=== PATIENT | female | born 1990 | race Caucasian/White ===

== ENCOUNTER 2018-01-25 15:30 | Outpatient (CLI) | payer OTHER ==
[2018-01-25 16:54] LABS: #Basophils 0.1 thou/uL (0.0-0.2); #Eosinphils 0.2 thou/uL (0.0-0.7); #Lymphocytes 2.9 thou/uL (1.20-3.40); #Monocytes 0.5 thou/uL (0.11-0.59); #Neutrophils 2.8 thou/uL (1.40-6.50); %Basophils 1.3 % (0.0-1.0); %Eosinophils 3.2 % (0.0-10.0); %Lymphocytes 44.2 % (21.0-51.0); %Monocytes 8.4 % (0.0-10.0); %Neutrophils 42.9 % (42.0-75.0); Hemoglobin 12.4 g/dL (12.0-16.0); Mean Corpuscular HGB CONC 33.1 g/dL (32.0-36.0); Mean Corpuscular Volume 93.4 fl (81.0-99.0); Mean Platelet Volume 8.8 fL (7.4-10.4); Platelet Count 217 thou/uL (130-400); RBC Distribution Width 11.8 % (11.5-14.5); White Blood Cell (WBC) Count 6.5 thou/uL (4.8-10.8)
[2018-01-25 16:58] LABS: BHCG - Serum Negative (NEGATIVE); Pregs Control Background? CLEAR/WHITE (CLR/WHITE); Pregs Control Bar Appear? YES (CONTROL BAR)
[2018-01-25 17:23] LABS: ALT (SGPT) 12 U/L (8-55); AST (SGOT) 14 U/L (5-34); Albumin 4.4 g/dL (3.5-5.0); Alkaline Phosphatase 58 U/L (40-150); Anion Gap 9 mmol/L (10-20); BUN (Urea Nitrogen) 13 mg/dL (7.0-18.7); Bilirubin, Total 0.3 mg/dL (0.2-1.2); Calc. Creatinine Clearance 0 mL/min (70-130); Calcium 9.1 mg/dL (7.8-10.44); Carbon Dioxide 26 mmol/L (22-29); Chloride 107 mmol/L (98-107); Estimated GFR-MDRD 85; Globulin 2.1 g/dL (2.4-3.5); Glucose 87 mg/dL (70-105); Potassium 4.1 mmol/L (3.5-5.1); Protein, Total 6.5 g/dL (6.0-8.3); Sodium 138 mmol/L (136-145)
== END 2018-01-25 15:31 | disposition home or self-care (01) ==
LOC: LABBT 15:30
PROVIDERS: ATTEND Surgery
DX: Z01.812 Encounter for preprocedural laboratory examination (principal); K43.2 Incisional hernia without obstruction or gangrene
CPT/HCPCS: 80053; 84703; 85025

== ENCOUNTER 2018-02-01 06:11 | Inpatient (IN) | payer OTHER ==
[2018-01-25 16:12] VITALS: BMI 33.5
[2018-02-01] MEDS ORDERED: Bupivacaine/Epinephrine 0.25% 30 ML VIAL ONE (06:37)
[2018-02-01] MEDS ORDERED: Fentanyl 100 MCG/2 ML VIAL ONE ×3 (06:38→09:53)
[2018-02-01] MEDS ORDERED: Midazolam HCl 2 mg/2 ml Vial ONE (06:38)
[2018-02-01] MEDS ORDERED: CEFAZOLIN/Water 2 GM/20 ML SYRINGE ONE (07:19)
[2018-02-01] MEDS ORDERED: Albuterol Sulfate HFA (OR ONLY) ONE (07:40)
[2018-02-01] MEDS ORDERED: Promethazine HCl 25 MG/ML VIAL IM PRN (09:04)
[2018-02-01] MEDS ORDERED: hydrALAZINE 20 MG/ML VIAL SLOW IVP PRN (09:04)
[2018-02-01] MEDS ORDERED: Dextrose 5% in Water 1,000 ML IV PRN (09:04)
[2018-02-01] MEDS ORDERED: Ondansetron HCl/PF 4 MG/2 ML Vial IVP PRN (09:04)
[2018-02-01] MEDS ORDERED: Morphine 4 MG/ML VIAL SLOW IVP PRN ×2 (09:04)
[2018-02-01] MEDS ORDERED: Dextrose 50% Abboject 50 ML SYRINGE SLOW IVP PRN (09:04)
--- NOTE | 2018-02-01 09:44 | OP ---
PREOPERATIVE DIAGNOSIS: Incisional ventral hernia x2. SURGEON: Masoud Caraballo M.D. PROCEDURE PERFORMED: Laparoscopic ventral hernia repair with mesh x2. INDICATIONS: This is a 27-year-old female who had a previous section through a low midline and developed 2 incisional hernias causing pain. FINDINGS: A 4 cm hernias x2, one at the umbilicus and one just below between the umbilicus and pubis . PROCEDURE IN DETAIL: After informed consent was obtained, patient was taken to the operating room an d given general endotracheal anesthesia. She was placed with the left side propped up, right side sl ightly down. Abdomen and pelvis prepped and draped in usual fashion. Local anesthesia infiltrated s ubcutaneously and deep. A 12 mm incision was performed in left flank. Veress needle inserted. Drop test performed. Pneumoperitoneum was created to a volume of 2 liters of carbon dioxide. Utilizing a bladeless 12 lumen trocar and 0 degree laparoscope, direct visual entry in the abdominal cavity was performed. Pneumoperitoneum was created to a pressure of 15 mmHg. Zero degree laparoscope inserted under direct vision, two 5-mm ports were placed on the far left side. Then a laparoscopic lysis of adhesions was performed utilizing the LigaSure. The anterior abdominal wall was completely cleaned o f adhesions and the falciform ligament was partially from the anterior abdominal wall to al low more space. A 15 x 22 cm Proceed mesh was used. This was prepared by placing alternating colore d 0 Ethibond circumferentially, total of 8. Then it was hydrated, rolled, and introduced into the ab domen. It was unrolled and the sutures were individually grasped to position the mesh optimally. Th ruma were then tied down and then the SecureStrap Tacker was used to further secure the mesh to the an terior abdominal wall. Hemostasis was assured. The sutures were cut and the incisions closed with i nterrupted 4-0 Rapide. Dermabond applied. An abdominal binder applied. Patient tolerated the proce dure well and was transferred to recovery in good condition. Sponge and needle count verified correc t x2.
[2018-02-01] MEDS: Piperacillin/Tazobactam 3.375 GM in Sodium Chloride 0.9% 100 ML IVPB SCH ×2 (11:59→17:39)
[2018-02-01] MEDS ORDERED: Ketorolac Tromethamine 30 MG/ML VIAL IVP SCH (12:00)
[2018-02-01] MEDS ORDERED: PROVENTIL INHALER 6.7 G (200 INHALATIONS) ONE (13:59)
[2018-02-01] MEDS ORDERED: Dexamethasone 20 MG/5 ML VIAL ONE (13:59)
[2018-02-01] MEDS ORDERED: PROPOFOL 200 MG/20 ML VIAL ONE (13:59)
[2018-02-01] MEDS ORDERED: Lidocaine 1% PF 5 ML VIAL ONE (13:59)
[2018-02-01] MEDS ORDERED: Glycopyrrolate 0.2 MG/ML 5 ML SYRINGE ONE (13:59)
[2018-02-01] MEDS ORDERED: PHENYLEPHRINE-NS 100 MCG/ML 10 ML SYRINGE ONE (13:59)
[2018-02-01] MEDS ORDERED: Ketorolac Tromethamine 30 MG/ML VIAL ONE (13:59)
[2018-02-01] MEDS: Ketorolac Tromethamine 30 MG/ML VIAL IVP SCH ×2 (15:36→23:29)
[2018-02-01] MEDS: Lactated Ringer's 1,000 ML IV SCH ×2 (16:14→19:45)
[2018-02-01] MEDS: HYDROcodone/Acetaminophen 10/325 mg Tablet PO PRN (17:39)
[2018-02-01] MEDS: Famotidine/PF 20 mg/2ml Vial SLOW IVP SCH (20:55)
[2018-02-01] MEDS ORDERED: traZODone HCl 150 MG TAB PO SCH (21:00)
[2018-02-01] MEDS ORDERED: Amoxicillin/Potassium Clav 875 MG TAB PO SCH (21:00)
[2018-02-01] MEDS ORDERED: LATUDA 120 MG PO SCH (21:00)
[2018-02-01] MEDS: OXcarbazepine 300 MG TAB PO SCH (22:51)
[2018-02-01] MEDS: Famotidine 20 MG TAB PO SCH (22:51)
[2018-02-01] MEDS: clonazePAM 1 MG TAB PO SCH (23:29)
[2018-02-02] MEDS: HYDROcodone/Acetaminophen 10/325 mg Tablet PO PRN ×4 (00:27→14:28)
[2018-02-02] MEDS: Piperacillin/Tazobactam 3.375 GM in Sodium Chloride 0.9% 100 ML IVPB SCH ×3 (00:27→13:35)
[2018-02-02] MEDS: Ketorolac Tromethamine 30 MG/ML VIAL IVP SCH ×2 (04:20→08:26)
[2018-02-02] MEDS: Lactated Ringer's 1,000 ML IV SCH (04:41)
[2018-02-02 05:41] LABS: #Eosinphils 0.1 thou/uL (0.0-0.7); #Lymphocytes 2.3 thou/uL (1.20-3.40); #Monocytes 0.5 thou/uL (0.11-0.59); #Neutrophils 4.4 thou/uL (1.40-6.50); %Basophils 0.2 % (0.0-1.0); %Eosinophils 1.9 % (0.0-10.0); %Lymphocytes 31.3 % (21.0-51.0); %Monocytes 7.3 % (0.0-10.0); %Neutrophils 59.4 % (42.0-75.0); Hemoglobin 10.9 g/dL (12.0-16.0); Mean Corpuscular HGB CONC 33.7 g/dL (32.0-36.0); Mean Corpuscular Hemoglobin 30.8 pg (27.0-31.0); Mean Corpuscular Volume 91.5 fl (81.0-99.0); Mean Platelet Volume 8.7 fL (7.4-10.4); Platelet Count 169 thou/uL (130-400); RBC Distribution Width 11.8 % (11.5-14.5); Red Blood Cell (RBC) Count 3.54 mill/uL (4.20-5.40); White Blood Cell (WBC) Count 7.5 thou/uL (4.8-10.8)
[2018-02-02 05:45] LABS: Anion Gap 5 mmol/L (10-20); BUN (Urea Nitrogen) 6 mg/dL (7.0-18.7); Calc. Creatinine Clearance 210 mL/min (70-130); Calcium 8.1 mg/dL (7.8-10.44); Carbon Dioxide 28 mmol/L (22-29); Chloride 103 mmol/L (98-107); Estimated GFR-MDRD Greater than 90; Glucose 100 mg/dL (70-105); Potassium 3.4 mmol/L (3.5-5.1); Sodium 133 mmol/L (136-145)
[2018-02-02] MEDS ORDERED: Enoxaparin Sodium 40 MG/0.4 ML SYRINGE SC SCH (06:00)
[2018-02-02] MEDS: OXcarbazepine 300 MG TAB PO SCH (08:27)
[2018-02-02] MEDS: clonazePAM 1 MG TAB PO SCH (08:27)
[2018-02-02] MEDS: Famotidine 20 MG TAB PO SCH (08:27)
[2018-02-02] MEDS ORDERED: Bupropion 150 MG SR TAB PO SCH (09:00)
[2018-02-02 09:11] VITALS: TEMP 97.6
[2018-02-02 09:13] VITALS: BP 122/73
--- NOTE | 2018-02-02 09:55 | DIS ---
DISCHARGE DIAGNOSIS: Incisional ventral hernia x2. PROCEDURES DURING ADMISSION: Laparoscopic ventral hernia repair with mesh. HOSPITAL COURSE: The patient was admitted, taken to the OR where she underwent a laparoscopic ventra l hernia repair x2 with mesh. Postoperatively, she has done well. Her pain is controlled on p.o. me ds. She is discharged home in good condition on hydrocodone and Zofran. She will follow up with me in 2 weeks.
[2018-02-02] MEDS: Famotidine/PF 20 mg/2ml Vial SLOW IVP SCH (11:46)
[2018-02-03] MEDS ORDERED: Enoxaparin Sodium 40 MG/0.4 ML SYRINGE SC SCH (09:00)
== END 2018-02-02 15:12 | disposition home or self-care (01) | DRG 355 ==
LOC: SDC 06:11 → SJJU 10:05
PROVIDERS: ADMIT Surgery; ATTEND Surgery
PROC: 0WUF4JZ Supplement Abdominal Wall with Synthetic Substitute, Percutaneous Endoscopic Approach (ICD-10-PCS; principal; 2018-02-01)
DX: K43.2 Incisional hernia without obstruction or gangrene (principal); F20.9 Schizophrenia, unspecified; F31.9 Bipolar disorder, unspecified; F17.210 Nicotine dependence, cigarettes, uncomplicated
CPT/HCPCS: 36415; 80048; 85025; 96374; C1781; J0131; J1100; J1650; J1885; J2001; J2250; J2270; J2543; J2704; J3010; J7050

== ENCOUNTER 2022-01-27 17:00 | Outpatient (CLI) | payer OTHER | END 2022-01-27 17:01 | disposition home or self-care (01) | LOC: SLEEPLAB 17:00 | PROVIDERS: ATTEND Student in an Organized Health Care Education/Training Program | DX: G47.33 Obstructive sleep apnea (adult) (pediatric) (principal); R51.9 Headache, unspecified; R06.83 Snoring; F41.9 Anxiety disorder, unspecified; G47.00 Insomnia, unspecified; F31.9 Bipolar disorder, unspecified; G47.31 Primary central sleep apnea; E66.9 Obesity, unspecified; Z68.43 Body mass index [BMI] 50.0-59.9, adult | CPT/HCPCS: 95800 ==

== ENCOUNTER 2022-02-12 15:35 | Outpatient (CLI) | payer OTHER | END 2022-02-12 15:36 | disposition home or self-care (01) | LOC: DTY/OP 15:35 | PROVIDERS: ATTEND Specialist | DX: E66.01 Morbid (severe) obesity due to excess calories (principal) | CPT/HCPCS: 97802 ==

== ENCOUNTER 2022-03-07 12:24 | Outpatient (CLI) | payer OTHER | END 2022-03-07 12:25 | disposition home or self-care (01) | LOC: ULT 12:24 | PROVIDERS: ATTEND Student in an Organized Health Care Education/Training Program | DX: R60.0 Localized edema (principal); R06.01 Orthopnea; I07.1 Rheumatic tricuspid insufficiency | CPT/HCPCS: 93306 ==

== ENCOUNTER 2022-04-02 19:30 | Outpatient (CLI) | payer OTHER | END 2022-04-02 19:31 | disposition home or self-care (01) | LOC: SLEEPLAB 19:30 | PROVIDERS: ATTEND Student in an Organized Health Care Education/Training Program | DX: G47.33 Obstructive sleep apnea (adult) (pediatric) (principal); R51.9 Headache, unspecified; E66.9 Obesity, unspecified; F41.9 Anxiety disorder, unspecified; G47.10 Hypersomnia, unspecified; Z68.43 Body mass index [BMI] 50.0-59.9, adult | CPT/HCPCS: 95811 ==

== ENCOUNTER 2022-10-23 10:45 | Inpatient (IN) | payer OTHER ==
[2022-10-28 15:07] VITALS: BMI 50.1
[2022-10-29] MEDS ORDERED: Acetaminophen 500 MG TAB ONE (06:30)
[2022-10-29] MEDS ORDERED: Heparin 5,000 UNITS/ML VIAL ONE (06:30)
[2022-10-29] MEDS ORDERED: Ketorolac Tromethamine 30 MG/ML VIAL ONE ×2 (06:30→07:38)
[2022-10-29] MEDS ORDERED: Fentanyl 250 MCG/5 ML VIAL ONE (06:42)
[2022-10-29] MEDS ORDERED: Dexmedetomidine 200 MCG/2 ML VIAL ONE (06:43)
[2022-10-29] MEDS ORDERED: Bupivacaine/Epinephrine 0.25% 30 ML VIAL ONE (06:54)
[2022-10-29 07:04] LABS: SARS-CoV-2 NAA Rapid Test Not Detected (NotDetected)
[2022-10-29] MEDS ORDERED: cefOXitin 2 GM VIAL ONE (07:19)
[2022-10-29] MEDS ORDERED: Sodium Chloride 0.9% 100 ML ONE (07:22)
[2022-10-29] MEDS ORDERED: Ondansetron PF 4 MG/2 ML Vial ONE (07:38)
[2022-10-29] MEDS ORDERED: Glycopyrrolate 0.2 MG/ML 5 ML SYRINGE ONE (07:38)
[2022-10-29] MEDS ORDERED: NEOSTIGMINE 3 MG/3 ML SYR 3 MG/3 ML SYRINGE ONE (07:38)
[2022-10-29] MEDS ORDERED: Rocuronium Bromide 10 MG/ML (10ML VIAL) ONE (07:38)
[2022-10-29] MEDS ORDERED: PROPOFOL 200 MG/20 ML VIAL ONE (07:38)
[2022-10-29] MEDS ORDERED: Dexamethasone 20 MG/5 ML VIAL ONE (07:38)
[2022-10-29] MEDS ORDERED: HumaLOG 300 UNITS/3 ML VIAL SC PRN (07:45)
[2022-10-29] MEDS ORDERED: Dextrose 50% Abboject 50 ML SYRINGE SLOW IVP PRN (07:45)
[2022-10-29] MEDS ORDERED: Morphine 4 MG/ML VIAL SLOW IVP PRN (07:45)
[2022-10-29] MEDS ORDERED: Acetaminophen 650 MG/20.3 ML UDCUP PO PRN (07:45)
[2022-10-29] MEDS ORDERED: Promethazine HCl 25 MG/ML VIAL IM PRN ×2 (07:45→10:46)
[2022-10-29] MEDS ORDERED: Ondansetron PF 4 MG/2 ML Vial IVP PRN (07:45)
[2022-10-29] MEDS ORDERED: hydrALAZINE 20 MG/ML VIAL SLOW IVP PRN (07:45)
[2022-10-29] MEDS ORDERED: Ipratropium/Albuterol 3 ML NEB NEB PRN (07:45)
[2022-10-29] MEDS ORDERED: Dextrose 5% in Water 1,000 ML IV PRN (07:45)
[2022-10-29] MEDS ORDERED: diphenhydrAMINE 50 MG/ML VIAL IVP PRN (07:45)
[2022-10-29] MEDS ORDERED: Ondansetron HCl/PF 4 MG/2 ML Vial IVP PRN (10:46)
[2022-10-29] MEDS ORDERED: Fentanyl 100 MCG/2 ML VIAL ONE ×3 (11:32→15:41)
[2022-10-29] MEDS: 1/2 NS w/KCL 20 mEq 1,000 ML IV SCH ×2 (16:42→17:11)
[2022-10-29] MEDS: Pantoprazole 40 MG VIAL IVP SCH (16:43)
[2022-10-29] MEDS: Ketorolac Tromethamine 30 MG/ML VIAL IVP SCH ×2 (16:43→17:12)
[2022-10-29] MEDS: CEFAZOLIN 2 GM in Sodium Chloride 0.9% 100 ML IVPB SCH (17:12)
[2022-10-29] MEDS: Hydrocodone-Acetamin 15 ML UDCUP PO PRN (21:30)
[2022-10-30] MEDS: Ketorolac Tromethamine 30 MG/ML VIAL IVP SCH ×4 (00:24→17:30)
[2022-10-30] MEDS: CEFAZOLIN 2 GM in Sodium Chloride 0.9% 100 ML IVPB SCH (00:28)
[2022-10-30] MEDS: 1/2 NS w/KCL 20 mEq 1,000 ML IV SCH ×3 (00:34→16:18)
[2022-10-30 06:13] LABS: #Lymphocytes 1.9 thou/uL (1.20-3.40); #Monocytes 0.8 thou/uL (0.11-0.59); #Neutrophils 7.7 thou/uL (1.40-6.50); %Basophils 0.2 % (0.0-1.0); %Eosinophils 0.2 % (0.0-10.0); %Lymphocytes 18.5 % (21.0-51.0); %Monocytes 7.2 % (0.0-10.0); %Neutrophils 73.9 % (42.0-75.0); Hemoglobin 11.4 g/dL (12.0-16.0); Mean Corpuscular Hemoglobin 31.1 pg (27.0-31.0); Mean Corpuscular Volume 94.2 fl (78.0-98.0); Mean Platelet Volume 9.1 fL (7.4-10.4); Platelet Count 226 10x3/uL (130-400); RBC Distribution Width 12.1 % (11.5-14.5); Red Blood Cell (RBC) Count 3.66 mill/uL (4.20-5.40); White Blood Cell (WBC) Count 10.4 10x3/uL (4.8-10.8)
[2022-10-30 06:29] LABS: Anion Gap 11 mmol/L (10-20); BUN (Urea Nitrogen) 8 mg/dL (7.0-18.7); Calc. Creatinine Clearance 239 mL/min (70-130); Calcium 8.4 mg/dL (7.8-10.44); Carbon Dioxide 24 mmol/L (22-29); Chloride 107 mmol/L (98-107); Estimated GFR 101; Glucose 95 mg/dL (70-105); Potassium 4.1 mmol/L (3.5-5.1); Sodium 138 mmol/L (136-145)
[2022-10-30] MEDS: Pantoprazole 40 MG VIAL IVP SCH (08:39)
[2022-10-30] MEDS: Hydrocodone-Acetamin 15 ML UDCUP PO PRN (08:39)
[2022-10-30 08:45] VITALS: TEMP 98
[2022-10-30 12:08] VITALS: BP 91/57
[2022-10-31] MEDS ORDERED: FLU VACC QS2022-23(6MOS UP)/PF 60 MCG/0.5 ML SYRINGE IM ONE (09:00)
== END 2022-10-30 18:14 | disposition home or self-care (01) | DRG 621 ==
LOC: SURG A 10-29 06:04 → SJJU 10-29 17:08
PROVIDERS: ADMIT Specialist; ATTEND Specialist
PROC: 0D164ZA Bypass Stomach to Jejunum, Percutaneous Endoscopic Approach (ICD-10-PCS; principal; 2022-10-29)
PROC: 3E033XZ Introduction of Vasopressor into Peripheral Vein, Percutaneous Approach (ICD-10-PCS; 2022-10-29)
DX: E66.01 Morbid (severe) obesity due to excess calories (principal); E11.9 Type 2 diabetes mellitus without complications; G47.30 Sleep apnea, unspecified; K66.0 Peritoneal adhesions (postprocedural) (postinfection); M51.16 Intervertebral disc disorders with radiculopathy, lumbar region; K21.9 Gastro-esophageal reflux disease without esophagitis; K43.2 Incisional hernia without obstruction or gangrene; Z98.890 Other specified postprocedural states; Z79.890 Hormone replacement therapy; Z79.899 Other long term (current) drug therapy; Z68.43 Body mass index [BMI] 50.0-59.9, adult; D64.9 Anemia, unspecified; Z20.822 Contact with and (suspected) exposure to COVID-19; J45.909 Unspecified asthma, uncomplicated; F17.210 Nicotine dependence, cigarettes, uncomplicated; Z82.49 Family history of ischemic heart disease and other diseases of the circulatory system; Z80.51 Family history of malignant neoplasm of kidney; Z88.8 Allergy status to other drugs, medicaments and biological substances
CPT/HCPCS: 36415; 36416; 80048; 85025; A4649; C1889; C9113; J0694; J1100; J1644; J1650; J1885; J2405; J2704; J3010; J3480; J3490; U0002

== ENCOUNTER 2022-10-23 11:37 | Outpatient (CLI) | payer OTHER ==
[2022-10-23 14:57] LABS: BHCG - Serum Negative (NEGATIVE); Pregs Control Background? CLEAR/WHITE (CLR/WHITE); Pregs Control Bar Appear? YES (CONTROL BAR)
[2022-10-23 15:00] LABS: Anion Gap 14 mmol/L (10-20); BUN (Urea Nitrogen) 10 mg/dL (7.0-18.7); Calc. Creatinine Clearance 0 mL/min (70-130); Calcium 9.3 mg/dL (7.8-10.44); Carbon Dioxide 23 mmol/L (22-29); Chloride 105 mmol/L (98-107); Estimated GFR 100; Glucose 77 mg/dL (70-105); Potassium 4.2 mmol/L (3.5-5.1); Sodium 138 mmol/L (136-145)
[2022-10-23 15:03] LABS: #Eosinphils 0.2 10x3/uL (0.0-0.5); #Monocytes 0.6 10x3/uL (0.0-1.1); #Neutrophils 5.3 10x3/uL (1.5-8.4); %Basophils 0.3 % (0.0-2.0); %Eosinophils 1.8 % (0.0-6.0); %Lymphocytes 29.4 % (18.0-47.0); %Monocytes 6.5 % (0.0-10.0); %Neutrophils 61.8 % (40.0-75.0); Hemoglobin 13.1 g/dL (12.0-15.5); Mean Corpuscular HGB CONC 33.3 g/dL (32.0-36.0); Mean Corpuscular Hemoglobin 31.1 pg (27.0-33.0); Mean Corpuscular Volume 93.3 fl (81.6-98.3); Mean Platelet Volume 11.7 fl (7.4-10.4); Platelet Count 302 10x3/uL (150-450); RBC Distribution Width 13.2 % (11.5-14.5); Red Blood Cell (RBC) Count 4.21 10x6/uL (3.90-5.03); White Blood Cell (WBC) Count 8.7 10x3/uL (3.5-10.5)
[2022-10-23 19:54] LABS: Hemoglobin A1c 5.2 % (4.0-6.0)
== END 2022-10-23 11:38 | disposition home or self-care (01) ==
LOC: LABBT 11:37
PROVIDERS: ATTEND Specialist
DX: Z01.812 Encounter for preprocedural laboratory examination (principal)
CPT/HCPCS: 80048; 83036; 84703; 85025

== ENCOUNTER 2022-12-17 13:07 | Observation (INO) | payer OTHER ==
[2022-12-17 14:30] LABS: #Lymphocytes 1.5 thou/uL (1.20-3.40); #Monocytes 0.6 thou/uL (0.11-0.59); #Neutrophils 5.6 thou/uL (1.40-6.50); %Basophils 0.3 % (0.0-1.0); %Eosinophils 0.6 % (0.0-10.0); %Lymphocytes 19.6 % (21.0-51.0); %Monocytes 7.3 % (0.0-10.0); %Neutrophils 72.2 % (42.0-75.0); Hemoglobin 12.9 g/dL (12.0-16.0); Mean Corpuscular HGB CONC 32.7 g/dL (32.0-36.0); Mean Corpuscular Volume 94.7 fl (78.0-98.0); Mean Platelet Volume 10.6 fL (7.4-10.4); Platelet Count 226 10x3/uL (130-400); RBC Distribution Width 12.2 % (11.5-14.5); Red Blood Cell (RBC) Count 4.16 mill/uL (4.20-5.40); White Blood Cell (WBC) Count 7.7 10x3/uL (4.8-10.8)
[2022-12-17] MEDS ORDERED: Morphine 4 MG/ML VIAL ONE ×2 (14:37→16:18)
[2022-12-17] MEDS ORDERED: Pantoprazole 40 MG VIAL ONE (14:37)
[2022-12-17] MEDS ORDERED: Ondansetron PF 4 MG/2 ML Vial ONE (14:37)
[2022-12-17 14:52] LABS: BHCG - Serum Negative (NEGATIVE); Pregs Control Background? CLEAR/WHITE (CLR/WHITE); Pregs Control Bar Appear? YES (CONTROL BAR)
[2022-12-17 14:59] LABS: ALT (SGPT) 30 U/L (8-55); AST (SGOT) 24 U/L (5-34); Albumin 3.9 g/dL (3.5-5.0); Alkaline Phosphatase 88 U/L (40-110); Anion Gap 14 mmol/L (10-20); BUN (Urea Nitrogen) 7 mg/dL (7.0-18.7); Bilirubin, Total 0.5 mg/dL (0.2-1.2); Calc. Creatinine Clearance 0 mL/min (70-130); Carbon Dioxide 23 mmol/L (22-29); Chloride 106 mmol/L (98-107); Estimated GFR 106; Globulin 2.7 g/dL (2.4-3.5); Glucose 95 mg/dL (70-105); Lipase 11 U/L (8-78); Potassium 3.7 mmol/L (3.5-5.1); Protein, Total 6.6 g/dL (6.0-8.3); Sodium 139 mmol/L (136-145)
[2022-12-17] MEDS ORDERED: Famotidine/PF 20 mg/2ml Vial ONE (16:18)
[2022-12-17] MEDS ORDERED: Lidocaine Viscous Sol 2% 15 ml UD Cup ONE (16:18)
[2022-12-17] MEDS ORDERED: Mag-Al 1200 mg/1200 mg/30 ML UDCUP ONE (16:18)
[2022-12-17] MEDS ORDERED: Iopamidol-370 76% 500 ML 1 ML ONE (17:25)
[2022-12-17] MEDS ORDERED: GASTROGRAFIN 30 ML BOT ONE (17:25)
[2022-12-17] MEDS ORDERED: HYDROmorphone 0.5 MG/0.5 ML SYRINGE ONE (18:16)
[2022-12-17] MEDS ORDERED: Piperacillin/Tazobactam 3.375 GM VIAL ONE (18:25)
[2022-12-17] MEDS ORDERED: Glycopyrrolate 0.2 MG/ML 5 ML SYRINGE SLOW IVP SCH (18:30)
[2022-12-17] MEDS ORDERED: HumaLOG 300 UNITS/3 ML VIAL SC PRN (18:32)
[2022-12-17] MEDS ORDERED: Morphine 2 MG/ML VIAL SLOW IVP PRN (18:32)
[2022-12-17] MEDS ORDERED: TETANUS, DIPHTHERIA TOX,ADULT (TDVAX) 0.5 ML VIAL IM ONE (18:32)
[2022-12-17] MEDS ORDERED: Dextrose 50% Abboject 50 ML SYRINGE SLOW IVP PRN (18:32)
[2022-12-17] MEDS ORDERED: Dextrose 5% in Water 1,000 ML IV PRN (18:32)
[2022-12-17] MEDS ORDERED: Ondansetron ODT 4 MG TAB PO PRN (18:32)
[2022-12-17] MEDS ORDERED: Ketorolac Tromethamine 30 MG/ML VIAL IVP SCH (18:45)
[2022-12-17 19:01] LABS: ALT (SGPT) 29 U/L (8-55); AST (SGOT) 24 U/L (5-34); Albumin 3.8 g/dL (3.5-5.0); Alkaline Phosphatase 84 U/L (40-110); Bilirubin, Direct 0.2 mg/dL (0.1-0.3); Bilirubin, Total 0.5 mg/dL (0.2-1.2); Protein, Total 6.3 g/dL (6.0-8.3)
[2022-12-17] MEDS: Morphine 4 MG/ML VIAL SLOW IVP PRN (21:08)
[2022-12-17] MEDS: Sertraline 100 MG TAB PO SCH (21:08)
[2022-12-17] MEDS: Lactated Ringer's 1,000 ML IV SCH (21:10)
[2022-12-17] MEDS: Ketorolac Tromethamine 30 MG/ML VIAL IVP PRN (21:36)
[2022-12-17] MEDS: traMADol HCl 50 MG TAB PO PRN (23:33)
[2022-12-18 02:51] VITALS: BMI 44.6
[2022-12-18] MEDS: Morphine 4 MG/ML VIAL SLOW IVP PRN ×5 (05:15→20:01)
[2022-12-18] MEDS: Levothyroxine 150 MCG TAB PO SCH (05:15)
[2022-12-18] MEDS: Lactated Ringer's 1,000 ML IV SCH ×3 (05:16→16:15)
[2022-12-18 08:37] LABS: SARS-CoV-2 NAA Rapid Test Not Detected (NotDetected)
[2022-12-18] MEDS ORDERED: Pantoprazole 40 MG VIAL IVP SCH (09:00)
[2022-12-18] MEDS: Aripiprazole 10 MG TAB PO SCH (09:36)
[2022-12-18] MEDS: Sertraline 100 MG TAB PO SCH (20:00)
[2022-12-18] MEDS: Ketorolac Tromethamine 30 MG/ML VIAL IVP PRN (22:36)
[2022-12-18] MEDS: traMADol HCl 50 MG TAB PO PRN (22:39)
[2022-12-19] MEDS: Morphine 4 MG/ML VIAL SLOW IVP PRN ×2 (00:20→06:03)
[2022-12-19] MEDS: Levothyroxine 150 MCG TAB PO SCH (06:06)
[2022-12-19] MEDS ORDERED: Bupivacaine HCl 0.5%/Epinephrine 1:200,000/PF 30 ml Vial ONE (08:00)
[2022-12-19] MEDS ORDERED: Bupivacaine/Epinephrine 0.25% 30 ML VIAL ONE (08:04)
[2022-12-19] MEDS ORDERED: Dexmedetomidine 200 MCG/2 ML VIAL ONE (08:11)
[2022-12-19] MEDS ORDERED: SUGAMMADEX SODIUM 200 MG/2 ML VIAL ONE ×2 (08:11→08:21)
[2022-12-19] MEDS ORDERED: Fentanyl 250 MCG/5 ML VIAL ONE (08:11)
[2022-12-19] MEDS ORDERED: Lidocaine 4% Topical Sol 50 ML BOT ONE (08:21)
[2022-12-19] MEDS ORDERED: Dexamethasone 20 MG/5 ML VIAL ONE (08:25)
[2022-12-19] MEDS ORDERED: Lidocaine 1% PF 5 ML VIAL ONE (08:25)
[2022-12-19] MEDS ORDERED: PROPOFOL 200 MG/20 ML VIAL ONE (08:25)
[2022-12-19] MEDS ORDERED: Rocuronium Bromide 10 MG/ML (10ML VIAL) ONE (08:25)
[2022-12-19] MEDS ORDERED: Ondansetron PF 4 MG/2 ML Vial ONE (08:25)
[2022-12-19] MEDS ORDERED: Acetaminophen 500 MG TAB PO PRN (08:29)
[2022-12-19] MEDS ORDERED: HYDROcodone/Acetaminophen 5/325 mg Tablet PO PRN (08:29)
[2022-12-19] MEDS ORDERED: Acetaminophen 500 MG TAB PO SCH (08:30)
[2022-12-19] MEDS ORDERED: Lactated Ringer's 1,000 ML IV SCH (09:00)
[2022-12-19] MEDS ORDERED: HYDROmorphone 0.5 MG/0.5 ML SYRINGE ONE ×2 (09:37→09:50)
[2022-12-19] MEDS ORDERED: fentaNYL PF 100 MCG/2 ML SYRINGE ONE (09:38)
[2022-12-19] MEDS ORDERED: Non-Formulary Medication 1 EACH PO PRN (09:49)
[2022-12-19] MEDS ORDERED: HYDROmorphone 2 MG/ML VIAL SLOW IVP PRN (10:00)
[2022-12-19] MEDS ORDERED: Ondansetron HCl/PF 4 MG/2 ML Vial IVP PRN (10:00)
[2022-12-19] MEDS ORDERED: Promethazine HCl 25 MG/ML VIAL IM/IV PRN (10:00)
[2022-12-19 13:35] VITALS: TEMP 97.6
[2022-12-19] MEDS: Aripiprazole 10 MG TAB PO SCH (13:51)
[2022-12-19 14:03] VITALS: BP 126/71
== END 2022-12-19 14:45 | disposition home or self-care (01) ==
LOC: ERS 13:07 → SURG B 18:32
PROVIDERS: ADMIT Specialist; ATTEND Specialist
PROC: 0FT44ZZ Resection of Gallbladder, Percutaneous Endoscopic Approach (ICD-10-PCS; principal; 2022-12-19)
DX: K80.12 Calculus of gallbladder with acute and chronic cholecystitis without obstruction (principal); K43.2 Incisional hernia without obstruction or gangrene; K21.9 Gastro-esophageal reflux disease without esophagitis; E11.9 Type 2 diabetes mellitus without complications; F17.210 Nicotine dependence, cigarettes, uncomplicated; E66.01 Morbid (severe) obesity due to excess calories; Z68.41 Body mass index [BMI] 40.0-44.9, adult; Z20.822 Contact with and (suspected) exposure to COVID-19; Z98.84 Bariatric surgery status; Z88.8 Allergy status to other drugs, medicaments and biological substances; Z79.890 Hormone replacement therapy; Z79.899 Other long term (current) drug therapy
CPT/HCPCS: 36415; 36416; 71045; 74177; 76705; 80053; 83605; 83690; 84443; 84484; 84703; 85025; 88304; 93005; 96365; 96372; 96375; 96376; C1889; C9113; G0378; J1170; J1650; J1885; J1956; J2270; J2405; J2543; J3010; J7120; Q0162; Q9963; Q9967; S0028; U0002; U0003; U0005

== ENCOUNTER 2023-02-07 11:03 | Emergency (ER) | payer OTHER ==
[2023-02-07 11:51] LABS: #Eosinphils 0.1 thou/uL (0.0-0.7); #Lymphocytes 1.8 thou/uL (1.20-3.40); #Monocytes 0.4 thou/uL (0.11-0.59); %Basophils 0.8 % (0.0-1.0); %Eosinophils 1.4 % (0.0-10.0); %Lymphocytes 28.2 % (21.0-51.0); %Monocytes 6.8 % (0.0-10.0); %Neutrophils 62.8 % (42.0-75.0); Hemoglobin 13.8 g/dL (12.0-16.0); Mean Corpuscular HGB CONC 33.6 g/dL (32.0-36.0); Mean Corpuscular Hemoglobin 32.3 pg (27.0-31.0); Mean Corpuscular Volume 95.9 fl (78.0-98.0); Mean Platelet Volume 9.8 fL (7.4-10.4); Platelet Count 227 10x3/uL (130-400); RBC Distribution Width 13.2 % (11.5-14.5); Red Blood Cell (RBC) Count 4.27 mill/uL (4.20-5.40); White Blood Cell (WBC) Count 6.4 10x3/uL (4.8-10.8)
[2023-02-07 12:01] LABS: BHCG - Serum Negative (NEGATIVE); Pregs Control Background? CLEAR/WHITE (CLR/WHITE); Pregs Control Bar Appear? YES (CONTROL BAR)
[2023-02-07 12:10] LABS: Bilirubin Negative (Negative); Blood, Urine Negative (Negative); Clarity Clear (Clear); Glucose, Urine (Dipstick) Normal (Negative); Ketone, Urine Negative (Negative); Leukocyte Negative Leu/uL (Negative); Nitrite Negative (Negative); Protein, Urine (Dipstick) Negative (Neg-Trace); Specific Gravity, Urine 1.008 (1.002-1.036); Urobilinogen Normal mg/dL (Less than 2)
[2023-02-07 12:14] LABS: ALT (SGPT) 24 U/L (8-55); AST (SGOT) 22 U/L (5-34); Albumin 3.9 g/dL (3.5-5.0); Alkaline Phosphatase 105 U/L (40-110); Anion Gap 12 mmol/L (10-20); BUN (Urea Nitrogen) 8 mg/dL (7.0-18.7); Bilirubin, Total 0.4 mg/dL (0.2-1.2); Calc. Creatinine Clearance 0 mL/min (70-130); Calcium 9.2 mg/dL (7.8-10.44); Carbon Dioxide 25 mmol/L (22-29); Chloride 106 mmol/L (98-107); Estimated GFR 101; Globulin 2.7 g/dL (2.4-3.5); Glucose 91 mg/dL (70-105); Lipase 20 U/L (8-78); Potassium 4.2 mmol/L (3.5-5.1); Protein, Total 6.6 g/dL (6.0-8.3); Sodium 139 mmol/L (136-145)
[2023-02-07] MEDS ORDERED: Mag-Al 1200 mg/1200 mg/30 ML UDCUP ONE (12:27)
[2023-02-07] MEDS ORDERED: Lidocaine Viscous Sol 2% 15 ml UD Cup ONE (12:27)
[2023-02-07] MEDS ORDERED: Ketorolac Tromethamine 30 MG/ML VIAL ONE (12:49)
== END 2023-02-07 14:55 | disposition home or self-care (01) ==
LOC: ERS 11:03
DX: R10.13 Epigastric pain (principal); E03.9 Hypothyroidism, unspecified; E66.9 Obesity, unspecified; F17.210 Nicotine dependence, cigarettes, uncomplicated
CPT/HCPCS: 36415; 71045; 80053; 81003; 83690; 84484; 84703; 85025; 93005; 96372; J1885

== ENCOUNTER 2023-03-24 07:32 | Outpatient (CLI) | payer OTHER | END 2023-03-24 07:33 | disposition home or self-care (01) | LOC: ULT 07:32 | PROVIDERS: ATTEND Family Medicine | DX: R10.13 Epigastric pain (principal); K76.0 Fatty (change of) liver, not elsewhere classified; Z90.49 Acquired absence of other specified parts of digestive tract | CPT/HCPCS: 76705 ==

== ENCOUNTER 2023-05-31 11:56 | Inpatient (IN) | payer OTHER ==
[2023-05-31] MEDS ORDERED: Ipratropium/Albuterol 3 ML NEB ONE (12:18)
[2023-05-31] MEDS ORDERED: Atropine Sulfate 1 mg/10 ml Syringe ONE (12:25)
[2023-05-31 12:37] LABS: #Eosinphils 0.1 thou/uL (0.0-0.7); #Monocytes 0.5 thou/uL (0.11-0.59); #Neutrophils 4.6 thou/uL (1.40-6.50); %Basophils 0.3 % (0.0-1.0); %Eosinophils 1.9 % (0.0-10.0); %Lymphocytes 27.8 % (21.0-51.0); %Monocytes 6.8 % (0.0-10.0); %Neutrophils 63.1 % (42.0-75.0); Hematocrit 41.2 % (36.0-47.0); Hemoglobin 13.6 g/dL (12.0-16.0); Mean Corpuscular Hemoglobin 32.6 pg (27.0-31.0); Mean Corpuscular Volume 98.8 fl (78.0-98.0); Platelet Count 230 10x3/uL (130-400); RBC Distribution Width 15.2 % (11.5-14.5); Red Blood Cell (RBC) Count 4.17 mill/uL (4.20-5.40); White Blood Cell (WBC) Count 7.2 10x3/uL (4.8-10.8)
[2023-05-31 12:58] LABS: BHCG - Serum Negative (NEGATIVE); Pregs Control Background? CLEAR/WHITE (CLR/WHITE); Pregs Control Bar Appear? YES (CONTROL BAR)
[2023-05-31] MEDS ORDERED: LORazepam 2 MG/ML SYR.(CARPUJECT) ONE (13:02)
[2023-05-31 13:18] LABS: ALT (SGPT) 17 U/L (8-55); AST (SGOT) 21 U/L (5-34); Albumin 3.4 g/dL (3.5-5.0); Alkaline Phosphatase 101 U/L (40-110); Anion Gap 16 mmol/L (10-20); Bilirubin, Total 0.5 mg/dL (0.2-1.2); Calc. Creatinine Clearance 0 mL/min (70-130); Calcium 8.9 mg/dL (7.8-10.44); Carbon Dioxide 18 mmol/L (22-29); Chloride 111 mmol/L (98-107); Estimated GFR 114; Globulin 2.8 g/dL (2.4-3.5); Glucose 93 mg/dL (70-105); Potassium 3.7 mmol/L (3.5-5.1); Protein, Total 6.2 g/dL (6.0-8.3); Sodium 141 mmol/L (136-145)
[2023-05-31 13:35] LABS: BUN (Urea Nitrogen) 8 mg/dL (7.0-18.7)
[2023-05-31 13:55] LABS: Bacteria/HPF None Seen HPF (None Seen); Bilirubin Negative (Negative); Blood, Urine Negative (Negative); CAUTI Indications for Culture Fever or rigors; Clarity Clear (Clear); Glucose, Urine (Dipstick) Normal (Negative); Ketone, Urine 40 mg/dL (Negative); Leukocyte Negative Leu/uL (Negative); Nitrite Negative (Negative); Protein, Urine (Dipstick) Negative (Neg-Trace); RBC/HPF 0-3 HPF (0-3); Specific Gravity, Urine 1.021 (1.002-1.036); Squamous Epithelial 0-3 HPF (0-3); Urobilinogen Normal mg/dL (Less than 2); WBC/HPF 0-3 HPF (0-3); pH, Urine 6.5 (5.0-9.0)
[2023-05-31 13:57] LABS: Urine Culture Reflex No No
[2023-05-31 14:03] LABS: Amphetamine Not Detected (NotDetected); Barbiturates Screen Not Detected (NotDetected); Benzodiazepine Screen Not Detected (NotDetected); Cocaine Metabolite Screen Not Detected (NotDetected); Methadone Not Detected (NotDetected); Methamphetamine Not Detected (NotDetected); Opiate Screen Not Detected (NotDetected); Oxycodone Screen Not Detected (NotDetected); Phencyclidine (PCP) Not Detected (NotDetected); THC/Cannabinoid Screen Detected (NotDetected); Tricyclic Screen Not Detected (NotDetected)
[2023-05-31 14:35] LABS: SARS-CoV-2 NAA Rapid Test Not Detected (NotDetected)
[2023-05-31] MEDS ORDERED: Gabapentin 300 MG CAP PO PRN (14:46)
[2023-05-31] MEDS ORDERED: Albuterol 200 PUFF (6.7GM INHALER) INH PRN (14:49)
[2023-05-31] MEDS ORDERED: Ondansetron ODT 4 MG TAB PO PRN (14:53)
[2023-05-31] MEDS ORDERED: Acetaminophen 500 MG TAB ONE (14:54)
[2023-05-31] MEDS ORDERED: Ipratropium/Albuterol 3 ML NEB NEB PRN (14:59)
[2023-05-31] MEDS ORDERED: Ketorolac Tromethamine 30 MG/ML VIAL IVP SCH ×2 (15:15→20:45)
[2023-05-31 15:26] LABS: Troponin I Less than 0.010 ng/mL (< 0.028)
[2023-05-31] MEDS ORDERED: Atropine Sulfate 1 mg/10 ml Syringe IVP SCH (15:30)
[2023-05-31] MEDS ORDERED: Levothyroxine 150 MCG TAB PO SCH (15:30)
[2023-05-31] MEDS ORDERED: Ketorolac Tromethamine 30 MG/ML VIAL ONE (15:39)
[2023-05-31] MEDS ORDERED: DOBUTamine 500 mg/250 ml 250 ML IVPB SCH ×2 (15:45→20:15)
[2023-05-31] MEDS ORDERED: DOBUTamine 500 mg/250 ml 500 MG in Premix Bag 1 BAG IVPB SCH (16:15)
[2023-05-31] MEDS: Lactated Ringer's 1,000 ML IV SCH (17:20)
[2023-05-31] MEDS ORDERED: Hydrocortisone Sod Succ/PF 100 mg/2 ml Vial IVP SCH (17:45)
[2023-05-31 18:11] LABS: Cardiac Risk 7.1 (Less than 4.5)
[2023-05-31 18:49] LABS: Free T4 (Free Thyroxine) 0.82 ng/dL (0.70-1.48)
[2023-05-31] MEDS: Acetaminophen 325 MG TAB PO PRN (19:33)
[2023-05-31] MEDS: Sertraline 25 MG TAB PO SCH (20:28)
[2023-06-01] MEDS: Lactated Ringer's 1,000 ML IV SCH ×4 (00:44→20:53)
[2023-06-01 04:22] LABS: #Monocytes 0.3 thou/uL (0.11-0.59); #Neutrophils 5.3 thou/uL (1.40-6.50); %Basophils 0.1 % (0.0-1.0); %Eosinophils 0.1 % (0.0-10.0); %Lymphocytes 22.9 % (21.0-51.0); %Neutrophils 72.6 % (42.0-75.0); Hematocrit 34.6 % (36.0-47.0); Hemoglobin 11.8 g/dL (12.0-16.0); Mean Corpuscular HGB CONC 34.1 g/dL (32.0-36.0); Mean Corpuscular Hemoglobin 33.1 pg (27.0-31.0); Mean Corpuscular Volume 96.9 fl (78.0-98.0); Mean Platelet Volume 11.9 fL (7.4-10.4); Platelet Count 201 10x3/uL (130-400); RBC Distribution Width 14.8 % (11.5-14.5); Red Blood Cell (RBC) Count 3.57 mill/uL (4.20-5.40); White Blood Cell (WBC) Count 7.3 10x3/uL (4.8-10.8)
[2023-06-01 04:49] LABS: ALT (SGPT) 16 U/L (8-55); AST (SGOT) 17 U/L (5-34); Alkaline Phosphatase 93 U/L (40-110); Anion Gap 13 mmol/L (10-20); BUN (Urea Nitrogen) 8 mg/dL (7.0-18.7); Bilirubin, Total 0.5 mg/dL (0.2-1.2); Calc. Creatinine Clearance 218 mL/min (70-130); Calcium 8.4 mg/dL (7.8-10.44); Carbon Dioxide 20 mmol/L (22-29); Chloride 110 mmol/L (98-107); Estimated GFR 119; Globulin 2.3 g/dL (2.4-3.5); Glucose 106 mg/dL (70-105); Magnesium 1.7 mg/dL (1.6-2.6); Potassium 3.8 mmol/L (3.5-5.1); Protein, Total 5.3 g/dL (6.0-8.3); Sodium 139 mmol/L (136-145)
[2023-06-01] MEDS: Levothyroxine 150 MCG TAB PO SCH (06:16)
[2023-06-01] MEDS ORDERED: Potassium Chloride 20 MEQ TAB PO SCH (06:45)
[2023-06-01] MEDS: Aripiprazole 10 MG TAB PO SCH (08:33)
[2023-06-01] MEDS: Magnesium Oxide 400 MG TAB PO SCH ×2 (08:34→20:54)
[2023-06-01] MEDS: Acetaminophen 325 MG TAB PO PRN ×2 (08:45→14:47)
[2023-06-01] MEDS ORDERED: Magnesium 2 GM/50 ML(in water) 2 GM in Premix Bag 1 BAG IVPB SCH (10:45)
[2023-06-01] MEDS ORDERED: Electrolyte Replacement Protocol FS PRN (10:45)
[2023-06-01 14:21] VITALS: BMI 36.8
[2023-06-01] MEDS: Sertraline 25 MG TAB PO SCH (20:54)
[2023-06-01] MEDS: Ketorolac Tromethamine 30 MG/ML VIAL IVP PRN (21:31)
[2023-06-02] MEDS: Lactated Ringer's 1,000 ML IV SCH (03:27)
[2023-06-02] MEDS: Levothyroxine 150 MCG TAB PO SCH (06:14)
[2023-06-02 07:02] LABS: Hematocrit 35.2 % (36.0-47.0); Hemoglobin 11.8 g/dL (12.0-16.0); Mean Corpuscular HGB CONC 33.5 g/dL (32.0-36.0); Mean Corpuscular Volume 98.3 fl (78.0-98.0); Mean Platelet Volume 12.3 fL (7.4-10.4); Platelet Count 177 10x3/uL (130-400); Red Blood Cell (RBC) Count 3.58 mill/uL (4.20-5.40); White Blood Cell (WBC) Count 6.2 10x3/uL (4.8-10.8)
[2023-06-02 07:16] LABS: Delete Auto Diff?? YES; Manual Diff?? YES
[2023-06-02 07:28] LABS: ALT (SGPT) 15 U/L (8-55); AST (SGOT) 18 U/L (5-34); Albumin 3.1 g/dL (3.5-5.0); Alkaline Phosphatase 90 U/L (40-110); Anion Gap 10 mmol/L (10-20); BUN (Urea Nitrogen) 6 mg/dL (7.0-18.7); Bilirubin, Total 0.3 mg/dL (0.2-1.2); Calc. Creatinine Clearance 196 mL/min (70-130); Calcium 8.2 mg/dL (7.8-10.44); Carbon Dioxide 21 mmol/L (22-29); Chloride 110 mmol/L (98-107); Estimated GFR 114; Globulin 2.2 g/dL (2.4-3.5); Glucose 88 mg/dL (70-105); Protein, Total 5.3 g/dL (6.0-8.3); Sodium 137 mmol/L (136-145)
[2023-06-02 08:11] LABS: Band 1 % (5-11); CellaVision Operator ID LAB.GE; Eosinophils 4 % (0-10); Giant Platelets 2.9 % (0-5); Large Platelets 9.6 % (0-5); Lymphocytes 34 % (21-51); Neutrophil 59 % (42-75); Platelet Adequacy Comment Platelets Normal; Polychromasia SLIGHT = 2-3 cells HPF (0-2); Total Cell Count 104
[2023-06-02 08:37] LABS: Magnesium 1.8 mg/dL (1.6-2.6)
[2023-06-02] MEDS: Aripiprazole 10 MG TAB PO SCH (08:42)
[2023-06-02] MEDS ORDERED: Magnesium 2 GM/50 ML(in water) 2 GM in Premix Bag 1 BAG IVPB SCH (09:00)
[2023-06-02] MEDS: Mometasone 200 MCG/Formoterol 5 MCG 120 PUFF INHALER INH SCH (18:18)
[2023-06-02] MEDS: Sertraline 25 MG TAB PO SCH (20:42)
[2023-06-02] MEDS: Acetaminophen 325 MG TAB PO PRN (20:46)
[2023-06-03] MEDS: Acetaminophen 325 MG TAB PO PRN (04:58)
[2023-06-03] MEDS: Levothyroxine 150 MCG TAB PO SCH (04:59)
[2023-06-03 05:29] LABS: #Eosinphils 0.1 thou/uL (0.0-0.7); #Monocytes 0.5 thou/uL (0.11-0.59); #Neutrophils 3.5 thou/uL (1.40-6.50); %Basophils 0.4 % (0.0-1.0); %Eosinophils 2.1 % (0.0-10.0); %Monocytes 7.8 % (0.0-10.0); %Neutrophils 51.4 % (42.0-75.0); Hematocrit 38.5 % (36.0-47.0); Hemoglobin 12.7 g/dL (12.0-16.0); Mean Corpuscular Hemoglobin 32.7 pg (27.0-31.0); Mean Corpuscular Volume 99.2 fl (78.0-98.0); Mean Platelet Volume 12.2 fL (7.4-10.4); Platelet Count 208 10x3/uL (130-400); RBC Distribution Width 14.9 % (11.5-14.5); Red Blood Cell (RBC) Count 3.88 mill/uL (4.20-5.40); White Blood Cell (WBC) Count 6.8 10x3/uL (4.8-10.8)
[2023-06-03 05:53] LABS: ALT (SGPT) 16 U/L (8-55); AST (SGOT) 20 U/L (5-34); Albumin 3.2 g/dL (3.5-5.0); Alkaline Phosphatase 100 U/L (40-110); Anion Gap 12 mmol/L (10-20); BUN (Urea Nitrogen) 5 mg/dL (7.0-18.7); Bilirubin, Total 0.4 mg/dL (0.2-1.2); Calc. Creatinine Clearance 188 mL/min (70-130); Calcium 8.7 mg/dL (7.8-10.44); Carbon Dioxide 22 mmol/L (22-29); Chloride 109 mmol/L (98-107); Estimated GFR 109; Globulin 2.6 g/dL (2.4-3.5); Glucose 93 mg/dL (70-105); Protein, Total 5.8 g/dL (6.0-8.3); Sodium 139 mmol/L (136-145)
[2023-06-03] MEDS: Mometasone 200 MCG/Formoterol 5 MCG 120 PUFF INHALER INH SCH (07:14)
[2023-06-03] MEDS ORDERED: Magnesium 2 GM/50 ML(in water) 2 GM in Premix Bag 1 BAG IVPB SCH (08:00)
[2023-06-03] MEDS ORDERED: Theophyllin SR 24HR 100 MG CAP PO SCH (09:00)
[2023-06-03] MEDS: Aripiprazole 10 MG TAB PO SCH (09:23)
[2023-06-03] MEDS: Ketorolac Tromethamine 30 MG/ML VIAL IVP PRN (10:02)
[2023-06-03 10:41] VITALS: BP 132/72; TEMP 98.2
== END 2023-06-03 15:41 | disposition home or self-care (01) | DRG 309 ==
LOC: ERS 11:56 → ERHOLD 13:58 → OBSVTOIN 15:33 → CCU 16:00 → 2NO 06-02 11:33
PROVIDERS: ADMIT Family Medicine; ATTEND Family Medicine
DX: R00.1 Bradycardia, unspecified (principal); E46 Unspecified protein-calorie malnutrition; J45.901 Unspecified asthma with (acute) exacerbation; E86.0 Dehydration; F31.9 Bipolar disorder, unspecified; K44.9 Diaphragmatic hernia without obstruction or gangrene; K46.9 Unspecified abdominal hernia without obstruction or gangrene; F17.210 Nicotine dependence, cigarettes, uncomplicated; Z68.37 Body mass index [BMI] 37.0-37.9, adult; E66.01 Morbid (severe) obesity due to excess calories; E03.8 Other specified hypothyroidism; G47.33 Obstructive sleep apnea (adult) (pediatric); Z20.822 Contact with and (suspected) exposure to COVID-19; Z98.84 Bariatric surgery status; Z88.8 Allergy status to other drugs, medicaments and biological substances; Z90.49 Acquired absence of other specified parts of digestive tract; Z98.890 Other specified postprocedural states
CPT/HCPCS: 36415; 71045; 80053; 80061; 80306; 81001; 83735; 84439; 84443; 84481; 84484; 84703; 85025; 87040; 93005; 93306; 94640; 96361; 96374; 96375; J0461; J1650; J1720; J1885; J2060; J3475; J7120; J7620; Q0162

== ENCOUNTER 2023-06-05 07:39 | Inpatient (IN) | payer OTHER ==
[2023-06-05 08:31] LABS: #Eosinphils 0.1 thou/uL (0.0-0.7); #Monocytes 0.5 thou/uL (0.11-0.59); #Neutrophils 3.3 thou/uL (1.40-6.50); %Basophils 0.3 % (0.0-1.0); %Eosinophils 2.2 % (0.0-10.0); %Lymphocytes 38.2 % (21.0-51.0); %Monocytes 7.8 % (0.0-10.0); %Neutrophils 51.3 % (42.0-75.0); Hematocrit 40.2 % (36.0-47.0); Hemoglobin 13.7 g/dL (12.0-16.0); Mean Corpuscular HGB CONC 34.1 g/dL (32.0-36.0); Mean Corpuscular Hemoglobin 32.9 pg (27.0-31.0); Mean Corpuscular Volume 96.6 fl (78.0-98.0); Mean Platelet Volume 12.4 fL (7.4-10.4); Platelet Count 243 10x3/uL (130-400); Red Blood Cell (RBC) Count 4.16 mill/uL (4.20-5.40); White Blood Cell (WBC) Count 6.5 10x3/uL (4.8-10.8)
[2023-06-05] MEDS ORDERED: Mag-Al 1200 mg/1200 mg/30 ML UDCUP ONE (08:47)
[2023-06-05 08:56] LABS: ALT (SGPT) 25 U/L (8-55); AST (SGOT) 27 U/L (5-34); Albumin 3.7 g/dL (3.5-5.0); Alkaline Phosphatase 105 U/L (40-110); Anion Gap 13 mmol/L (10-20); BUN (Urea Nitrogen) 6 mg/dL (7.0-18.7); Bilirubin, Total 0.5 mg/dL (0.2-1.2); Calc. Creatinine Clearance 0 mL/min (70-130); Calcium 9.2 mg/dL (7.8-10.44); Carbon Dioxide 20 mmol/L (22-29); Chloride 110 mmol/L (98-107); Estimated GFR 99; Globulin 2.8 g/dL (2.4-3.5); Glucose 95 mg/dL (70-105); Potassium 3.4 mmol/L (3.5-5.1); Protein, Total 6.5 g/dL (6.0-8.3); Sodium 140 mmol/L (136-145)
[2023-06-05 09:00] LABS: Troponin I Less than 0.010 ng/mL (< 0.028)
[2023-06-05] MEDS ORDERED: Lidocaine 2% Viscous Solution 10 ML, Aluminum & Magnesium Hydroxide 30 ML SSW SCH (09:00)
[2023-06-05] MEDS ORDERED: Aspirin Chewable 81 MG TAB ONE (09:09)
[2023-06-05] MEDS ORDERED: Atropine Sulfate 1 mg/10 ml Syringe ONE (09:43)
[2023-06-05] MEDS ORDERED: fentaNYL 50 mcg/mL 1 mL Vial ONE (09:57)
[2023-06-05 11:08] LABS: Magnesium 1.9 mg/dL (1.6-2.6)
[2023-06-05] MEDS ORDERED: Nitroglycerin 0.4 MG TAB 1 EACH ONE (11:35)
[2023-06-05] MEDS ORDERED: Gabapentin 300 MG CAP PO PRN (11:58)
[2023-06-05] MEDS ORDERED: Acetaminophen 325 MG TAB PO PRN (11:58)
[2023-06-05 12:29] LABS: Hemoglobin A1c 5.3 % (4.0-6.0)
[2023-06-05 12:33] LABS: Troponin I Less than 0.010 ng/mL (< 0.028)
[2023-06-05 12:59] LABS: Cardiac Risk 7.8 (Less than 4.5)
[2023-06-05] MEDS ORDERED: Potassium Chloride 20 MEQ TAB PO SCH (13:00)
[2023-06-05 14:07] VITALS: BMI 36.3
[2023-06-05] MEDS ORDERED: Iopamidol-370 76% 500 ML MDV (1 ML CHARGE) ONE (14:50)
[2023-06-05] MEDS: Nitroglycerin 0.4 MG TAB (25 Tab Bottle) SL PRN ×2 (15:50→16:10)
[2023-06-05] MEDS: Ondansetron ODT 4 MG TAB PO PRN ×2 (15:50→23:25)
[2023-06-05 16:15] LABS: Troponin I Less than 0.010 ng/mL (< 0.028)
[2023-06-05] MEDS ORDERED: Ketorolac Tromethamine 30 MG/ML VIAL IVP SCH (16:45)
[2023-06-05] MEDS ORDERED: Atropine Sulfate 1 mg/10 ml Syringe IVP SCH (17:15)
[2023-06-05] MEDS ORDERED: Acetaminophen 500 MG TAB PO SCH (18:00)
[2023-06-05] MEDS: Mometasone 100 MCG/Formoterol 5 MCG 120 PUFF INHALER INH SCH (19:08)
[2023-06-05] MEDS: Sertraline 100 MG TAB PO SCH (20:17)
[2023-06-05] MEDS: Ketorolac Tromethamine 30 MG/ML VIAL IVP SCH (23:24)
[2023-06-05] MEDS: Acetaminophen 325 MG TAB PO SCH (23:24)
[2023-06-06] MEDS: Ketorolac Tromethamine 30 MG/ML VIAL IVP SCH ×3 (05:22→17:14)
[2023-06-06] MEDS: Acetaminophen 325 MG TAB PO SCH ×5 (05:23→21:17)
[2023-06-06] MEDS: Levothyroxine 150 MCG TAB PO SCH (05:23)
[2023-06-06 05:39] LABS: #Eosinphils 0.2 thou/uL (0.0-0.7); #Monocytes 0.6 thou/uL (0.11-0.59); #Neutrophils 3.6 thou/uL (1.40-6.50); %Basophils 0.5 % (0.0-1.0); %Eosinophils 2.4 % (0.0-10.0); %Lymphocytes 33.7 % (21.0-51.0); %Monocytes 8.4 % (0.0-10.0); %Neutrophils 54.8 % (42.0-75.0); Hemoglobin 12.3 g/dL (12.0-16.0); Mean Corpuscular HGB CONC 33.2 g/dL (32.0-36.0); Mean Corpuscular Hemoglobin 33.2 pg (27.0-31.0); Mean Platelet Volume 12.3 fL (7.4-10.4); Platelet Count 211 10x3/uL (130-400); RBC Distribution Width 15.2 % (11.5-14.5); Red Blood Cell (RBC) Count 3.71 mill/uL (4.20-5.40); White Blood Cell (WBC) Count 6.6 10x3/uL (4.8-10.8)
[2023-06-06 05:51] LABS: Mean Corpuscular Volume 99.7 fl (78.0-98.0)
[2023-06-06 06:05] LABS: ALT (SGPT) 20 U/L (8-55); AST (SGOT) 25 U/L (5-34); Albumin 3.2 g/dL (3.5-5.0); Alkaline Phosphatase 93 U/L (40-110); Anion Gap 10 mmol/L (10-20); BUN (Urea Nitrogen) 8 mg/dL (7.0-18.7); Bilirubin, Total 0.4 mg/dL (0.2-1.2); Calc. Creatinine Clearance 162 mL/min (70-130); Calcium 8.5 mg/dL (7.8-10.44); Carbon Dioxide 25 mmol/L (22-29); Chloride 109 mmol/L (98-107); Estimated GFR 93; Globulin 2.4 g/dL (2.4-3.5); Glucose 91 mg/dL (70-105); Potassium 4.5 mmol/L (3.5-5.1); Protein, Total 5.6 g/dL (6.0-8.3); Sodium 139 mmol/L (136-145)
[2023-06-06] MEDS: Mometasone 100 MCG/Formoterol 5 MCG 120 PUFF INHALER INH SCH ×2 (10:38→18:47)
[2023-06-06] MEDS ORDERED: guaiFENesin 200 MG TAB PO PRN (13:15)
[2023-06-06] MEDS ORDERED: Regadenoson 0.4 MG/5 ML SYRINGE ONE (13:31)
[2023-06-06] MEDS ORDERED: Lidocaine 4% Patch TD SCH (14:30)
[2023-06-06] MEDS: Sertraline 100 MG TAB PO SCH (21:17)
[2023-06-06] MEDS: Transdermal Patch Removal TOP SCH (21:18)
[2023-06-07] MEDS: Ketorolac Tromethamine 30 MG/ML VIAL IVP SCH ×4 (00:17→18:11)
[2023-06-07] MEDS: Acetaminophen 325 MG TAB PO SCH ×6 (00:17→20:46)
[2023-06-07] MEDS: Levothyroxine 150 MCG TAB PO SCH (05:26)
[2023-06-07] MEDS: Mometasone 100 MCG/Formoterol 5 MCG 120 PUFF INHALER INH SCH ×2 (07:50→19:02)
[2023-06-07] MEDS ORDERED: Lidocaine 4% Patch TD SCH (09:00)
[2023-06-07] MEDS: Lidocaine 4% Patch TD SCH (09:43)
[2023-06-07] MEDS ORDERED: Aspirin 81 mg Enteric Coated Tablet PO SCH (11:15)
[2023-06-07] MEDS: Nitroglycerin 0.4 MG TAB (25 Tab Bottle) SL PRN (12:13)
[2023-06-07] MEDS ORDERED: Communication Order-Pharmacy FS SCH (13:45)
[2023-06-07] MEDS ORDERED: Nitroglycerin 0.4mg/Hour PATCH TD SCH (15:00)
[2023-06-07] MEDS: Ondansetron ODT 4 MG TAB PO PRN (15:58)
[2023-06-07] MEDS: Sertraline 100 MG TAB PO SCH (20:46)
[2023-06-07] MEDS: Transdermal Patch Removal TOP SCH (20:53)
[2023-06-08] MEDS: Ketorolac Tromethamine 30 MG/ML VIAL IVP SCH ×5 (00:29→23:59)
[2023-06-08] MEDS: Acetaminophen 325 MG TAB PO SCH ×6 (00:29→21:07)
[2023-06-08] MEDS: Levothyroxine 150 MCG TAB PO SCH (05:35)
[2023-06-08] MEDS: Sodium Chloride 0.9% 1,000 ML IV SCH ×2 (05:36→14:32)
[2023-06-08] MEDS: Mometasone 100 MCG/Formoterol 5 MCG 120 PUFF INHALER INH SCH ×2 (07:16→19:13)
[2023-06-08] MEDS ORDERED: fentaNYL 50 mcg/mL 1 mL Vial ONE ×2 (07:57→09:49)
[2023-06-08] MEDS ORDERED: Midazolam HCl 2 mg/2 ml Vial ONE (07:57)
[2023-06-08] MEDS ORDERED: Heparin 10,000 UNITS/ 10 ML VIAL ONE (07:58)
[2023-06-08] MEDS ORDERED: Lidocaine 1% (PF) 30 ML VIAL ONE (07:58)
[2023-06-08] MEDS ORDERED: Atropine Sulfate 1 mg/10 ml Syringe ONE (07:58)
[2023-06-08] MEDS ORDERED: Nitroglycerin 50 MG/250 ML BOT 250 ML ONE (07:58)
[2023-06-08] MEDS ORDERED: Aspirin 81 mg Enteric Coated Tablet PO SCH (09:00)
[2023-06-08] MEDS ORDERED: Iopamidol 370 76% 100 ML VIAL ONE (09:12)
[2023-06-08] MEDS ORDERED: Acetaminophen/Codeine 30-300mg Tablet PO PRN ×2 (10:21)
[2023-06-08] MEDS ORDERED: Sodium Chloride 0.9% 200 ML IV PRN (10:21)
[2023-06-08] MEDS ORDERED: Nitroglycerin 0.4 MG TAB (25 Tab Bottle) SL PRN (10:21)
[2023-06-08] MEDS: Lidocaine 4% Patch TD SCH (14:33)
[2023-06-08] MEDS: Sertraline 100 MG TAB PO SCH (21:08)
[2023-06-08] MEDS: Transdermal Patch Removal TOP SCH (21:13)
[2023-06-09] MEDS: Sodium Chloride 0.9% 1,000 ML IV SCH ×2 (00:03→11:22)
[2023-06-09] MEDS: Acetaminophen 325 MG TAB PO SCH ×5 (02:31→17:56)
[2023-06-09] MEDS: Levothyroxine 150 MCG TAB PO SCH (05:30)
[2023-06-09] MEDS: Mometasone 100 MCG/Formoterol 5 MCG 120 PUFF INHALER INH SCH (07:38)
[2023-06-09] MEDS: Lidocaine 4% Patch TD SCH (08:42)
[2023-06-09 10:12] LABS: #Eosinphils 0.1 thou/uL (0.0-0.7); #Monocytes 0.4 thou/uL (0.11-0.59); #Neutrophils 3.3 thou/uL (1.40-6.50); %Basophils 0.4 % (0.0-1.0); %Eosinophils 2.1 % (0.0-10.0); %Lymphocytes 27.9 % (21.0-51.0); %Monocytes 7.5 % (0.0-10.0); %Neutrophils 61.9 % (42.0-75.0); Hematocrit 37.8 % (36.0-47.0); Hemoglobin 12.6 g/dL (12.0-16.0); Mean Corpuscular HGB CONC 33.3 g/dL (32.0-36.0); Mean Platelet Volume 12.6 fL (7.4-10.4); Platelet Count 204 10x3/uL (130-400); RBC Distribution Width 14.8 % (11.5-14.5); Red Blood Cell (RBC) Count 3.82 mill/uL (4.20-5.40); White Blood Cell (WBC) Count 5.3 10x3/uL (4.8-10.8)
[2023-06-09 10:43] LABS: ALT (SGPT) 21 U/L (8-55); AST (SGOT) 22 U/L (5-34); Albumin 3.2 g/dL (3.5-5.0); Alkaline Phosphatase 94 U/L (40-110); Anion Gap 9 mmol/L (10-20); BUN (Urea Nitrogen) 7 mg/dL (7.0-18.7); Bilirubin, Total 0.4 mg/dL (0.2-1.2); Calc. Creatinine Clearance 167 mL/min (70-130); Calcium 8.6 mg/dL (7.8-10.44); Carbon Dioxide 23 mmol/L (22-29); Chloride 109 mmol/L (98-107); Estimated GFR 98; Globulin 2.4 g/dL (2.4-3.5); Glucose 125 mg/dL (70-105); Potassium 4.1 mmol/L (3.5-5.1); Protein, Total 5.6 g/dL (6.0-8.3); Sodium 137 mmol/L (136-145)
[2023-06-09 16:15] VITALS: BP 115/64; TEMP 97.5
== END 2023-06-09 18:11 | disposition home or self-care (01) | DRG 287 ==
LOC: ERS 07:39 → ERHOLD 11:32 → 2SW 14:00 → OBSVTOIN 06-07 10:41
PROVIDERS: ADMIT Family Medicine; ATTEND Family Medicine
PROC: 4A023N7 Measurement of Cardiac Sampling and Pressure, Left Heart, Percutaneous Approach (ICD-10-PCS; principal; 2023-06-08)
PROC: B2111ZZ Fluoroscopy of Multiple Coronary Arteries using Low Osmolar Contrast (ICD-10-PCS; 2023-06-08)
PROC: B2151ZZ Fluoroscopy of Left Heart using Low Osmolar Contrast (ICD-10-PCS; 2023-06-08)
DX: R07.89 Other chest pain (principal); J98.11 Atelectasis; F31.9 Bipolar disorder, unspecified; F41.9 Anxiety disorder, unspecified; E03.9 Hypothyroidism, unspecified; F17.210 Nicotine dependence, cigarettes, uncomplicated; R00.1 Bradycardia, unspecified; J45.909 Unspecified asthma, uncomplicated; E87.6 Hypokalemia; E66.9 Obesity, unspecified; I25.9 Chronic ischemic heart disease, unspecified; Z88.8 Allergy status to other drugs, medicaments and biological substances; Z79.899 Other long term (current) drug therapy; Z98.890 Other specified postprocedural states; Z90.49 Acquired absence of other specified parts of digestive tract; Z68.36 Body mass index [BMI] 36.0-36.9, adult
CPT/HCPCS: 36415; 71045; 71275; 78452; 80053; 80061; 83036; 83735; 84443; 84484; 85025; 85379; 93005; 93010; 93017; 93458; 94760; 96372; 96374; 96375; 96376; 99152; 99153; A9500; C1769; G0378; J0461; J1644; J1650; J1885; J2001; J2250; J2785; J3010; J7050; Q0162; Q9967

== ENCOUNTER 2023-08-04 11:23 | Outpatient (CLI) | payer OTHER ==
[2023-08-04 12:43] LABS: #Eosinphils 0.2 10x3/uL (0.0-0.5); #Monocytes 0.6 10x3/uL (0.0-1.1); #Neutrophils 5.2 10x3/uL (1.5-8.4); %Basophils 0.4 % (0.0-2.0); %Eosinophils 1.8 % (0.0-6.0); %Lymphocytes 28.3 % (18.0-47.0); %Monocytes 7.1 % (0.0-10.0); %Neutrophils 62.2 % (40.0-75.0); Hematocrit 36.1 % (34.9-44.5); Mean Corpuscular HGB CONC 33.2 g/dL (32.0-36.0); Mean Corpuscular Hemoglobin 32.1 pg (27.0-33.0); Mean Corpuscular Volume 96.5 fl (81.6-98.3); Mean Platelet Volume 11.5 fl (7.4-10.4); Platelet Count 322 10x3/uL (150-450); RBC Distribution Width 12.7 % (11.5-14.5); Red Blood Cell (RBC) Count 3.74 10x6/uL (3.90-5.03); White Blood Cell (WBC) Count 8.3 10x3/uL (3.5-10.5)
[2023-08-04 13:27] LABS: ALT (SGPT) 19 U/L (8-55); AST (SGOT) 18 U/L (5-34); Albumin 3.6 g/dL (3.5-5.0); Alkaline Phosphatase 103 U/L (40-110); Anion Gap 11 mmol/L (10-20); BUN (Urea Nitrogen) 10 mg/dL (7.0-18.7); Bilirubin, Total 0.3 mg/dL (0.2-1.2); Calc. Creatinine Clearance 0 mL/min (70-130); Calcium 8.5 mg/dL (7.8-10.44); Carbon Dioxide 24 mmol/L (22-29); Chloride 110 mmol/L (98-107); Estimated GFR 107; Globulin 2.4 g/dL (2.4-3.5); Glucose 84 mg/dL (70-105); Potassium 4.2 mmol/L (3.5-5.1); Sodium 141 mmol/L (136-145)
[2023-08-04 13:49] LABS: BHCG - Serum Negative (NEGATIVE); Pregs Control Background? CLEAR/WHITE (CLR/WHITE); Pregs Control Bar Appear? YES (CONTROL BAR)
== END 2023-08-04 11:24 | disposition home or self-care (01) ==
LOC: LABBT 11:23
PROVIDERS: ATTEND Surgery
DX: Z01.812 Encounter for preprocedural laboratory examination (principal); K43.2 Incisional hernia without obstruction or gangrene
CPT/HCPCS: 80053; 84703; 85025

== ENCOUNTER 2023-08-12 06:45 | Day surgery (SDC) | payer OTHER ==
[2023-08-04 11:52] VITALS: BMI 34.7
[2023-08-12] MEDS ORDERED: EPINEPHrine 1 MG/ML VIAL ONE (08:15)
[2023-08-12] MEDS ORDERED: Bupivacaine 0.25% HCL 30 ML VIAL ONE (08:16)
[2023-08-12] MEDS ORDERED: SUGAMMADEX SODIUM 200 MG/2 ML VIAL ONE (10:00)
[2023-08-12] MEDS ORDERED: Dexmedetomidine 200 MCG/2 ML VIAL ONE (10:00)
[2023-08-12] MEDS ORDERED: Fentanyl 250 MCG/5 ML VIAL ONE (10:00)
[2023-08-12] MEDS ORDERED: Sodium Chloride 0.9% 100 ML ONE (10:13)
[2023-08-12] MEDS ORDERED: CEFAZOLIN 2 GM VIAL ONE (10:13)
[2023-08-12] MEDS ORDERED: Lidocaine 4% PF 5 ML AMP ONE (10:17)
[2023-08-12] MEDS ORDERED: fentaNYL 50 mcg/mL 1 mL Vial ONE (12:23)
[2023-08-12] MEDS ORDERED: Ketorolac Tromethamine 30 MG/ML VIAL ONE (12:34)
== END 2023-08-12 14:56 | disposition home or self-care (01) ==
LOC: SDC 06:45
PROVIDERS: ATTEND Surgery
PROC: 0WUF0JZ Supplement Abdominal Wall with Synthetic Substitute, Open Approach (ICD-10-PCS; principal; 2023-08-12)
DX: K43.9 Ventral hernia without obstruction or gangrene (principal); E66.01 Morbid (severe) obesity due to excess calories; F20.9 Schizophrenia, unspecified; F31.9 Bipolar disorder, unspecified; F41.9 Anxiety disorder, unspecified; J45.909 Unspecified asthma, uncomplicated; M19.90 Unspecified osteoarthritis, unspecified site; Z79.899 Other long term (current) drug therapy; Z68.35 Body mass index [BMI] 35.0-35.9, adult; Z87.59 Personal history of other complications of pregnancy, childbirth and the puerperium; F17.210 Nicotine dependence, cigarettes, uncomplicated; Z88.8 Allergy status to other drugs, medicaments and biological substances
CPT/HCPCS: C1781; J0171; J1885; J3010; J3490; S0020

== ENCOUNTER 2023-08-17 09:22 | Observation (INO) | payer OTHER ==
[2023-08-17 10:11] LABS: #Eosinphils 0.1 thou/uL (0.0-0.7); #Monocytes 0.6 thou/uL (0.11-0.59); %Basophils 0.2 % (0.0-1.0); %Eosinophils 2.2 % (0.0-10.0); %Monocytes 9.9 % (0.0-10.0); %Neutrophils 69.5 % (42.0-75.0); Hematocrit 41.2 % (36.0-47.0); Hemoglobin 13.5 g/dL (12.0-16.0); Mean Corpuscular HGB CONC 32.8 g/dL (32.0-36.0); Mean Corpuscular Hemoglobin 31.5 pg (27.0-31.0); Mean Platelet Volume 11.3 fL (7.4-10.4); Platelet Count 301 10x3/uL (130-400); RBC Distribution Width 12.8 % (11.5-14.5); Red Blood Cell (RBC) Count 4.29 mill/uL (4.20-5.40); White Blood Cell (WBC) Count 5.8 10x3/uL (4.8-10.8)
[2023-08-17 10:33] LABS: ALT (SGPT) 21 U/L (8-55); AST (SGOT) 19 U/L (5-34); Albumin 4.3 g/dL (3.5-5.0); Alkaline Phosphatase 115 U/L (40-110); Anion Gap 11 mmol/L (10-20); BUN (Urea Nitrogen) 8 mg/dL (7.0-18.7); Bilirubin, Total 0.4 mg/dL (0.2-1.2); Calc. Creatinine Clearance 0 mL/min (70-130); Calcium 9.4 mg/dL (7.8-10.44); Carbon Dioxide 23 mmol/L (22-29); Chloride 107 mmol/L (98-107); Estimated GFR 101; Globulin 2.8 g/dL (2.4-3.5); Glucose 90 mg/dL (70-105); Lipase 9 U/L (8-78); Potassium 4.4 mmol/L (3.5-5.1); Protein, Total 7.1 g/dL (6.0-8.3); Sodium 137 mmol/L (136-145)
[2023-08-17] MEDS ORDERED: Morphine 4 MG/ML VIAL ONE ×2 (10:45→12:56)
[2023-08-17 11:33] LABS: BHCG - Serum Negative (NEGATIVE); Pregs Control Background? CLEAR/WHITE (CLR/WHITE); Pregs Control Bar Appear? YES (CONTROL BAR)
[2023-08-17 12:53] LABS: Bilirubin Negative (Negative); Blood, Urine Negative (Negative); CAUTI Indications for Culture Pelvic or flank pain; Clarity Clear (Clear); Glucose, Urine (Dipstick) Normal (Negative); Ketone, Urine Negative (Negative); Leukocyte Negative Leu/uL (Negative); Nitrite Negative (Negative); Protein, Urine (Dipstick) Negative (Neg-Trace); RBC/HPF 0-3 HPF (0-3); Specific Gravity, Urine 1.028 (1.002-1.036); Urobilinogen Normal mg/dL (Less than 2); WBC/HPF 0-3 HPF (0-3)
[2023-08-17 13:00] LABS: Bacteria/HPF 1+ HPF (None Seen)
[2023-08-17 13:01] LABS: Urine Culture Reflex No No
[2023-08-17] MEDS ORDERED: Ondansetron ODT 4 MG TAB PO PRN (14:45)
[2023-08-17] MEDS ORDERED: Guaifenesin DM 100-10/5 ML UDCUP PO PRN (14:45)
[2023-08-17] MEDS ORDERED: Calcium Carbonate 500 MG ChewTAB PO PRN (14:45)
[2023-08-17] MEDS ORDERED: Polyethylene Glycol 3350 17 GM Packet PO PRN (14:50)
[2023-08-17] MEDS ORDERED: Docusate 100 MG CAP PO PRN (14:50)
[2023-08-17] MEDS ORDERED: Simethicone Chewable 80 MG TAB PO PRN (14:50)
[2023-08-17] MEDS ORDERED: Iopamidol-370 76% 500 ML MDV (1 ML CHARGE) ONE (14:55)
[2023-08-17] MEDS ORDERED: Ibuprofen 600 MG TAB PO SCH (15:15)
[2023-08-17 15:19] VITALS: BMI 38.0
[2023-08-17] MEDS ORDERED: HYDROcodone/Acetaminophen 7.5/325 mg Tablet PO PRN (15:22)
[2023-08-17] MEDS: Acetaminophen 325 MG TAB PO SCH ×2 (15:57→21:25)
[2023-08-17] MEDS: HYDROcodone/Acetaminophen 7.5/325 mg Tablet PO SCH ×2 (15:57→21:26)
[2023-08-17] MEDS ORDERED: Morphine 2 MG/ML VIAL SLOW IVP SCH (20:15)
[2023-08-17] MEDS: Docusate 100 MG CAP PO SCH (21:25)
[2023-08-18] MEDS: HYDROcodone/Acetaminophen 7.5/325 mg Tablet PO SCH ×2 (02:53→08:58)
[2023-08-18] MEDS: Acetaminophen 325 MG TAB PO SCH ×2 (02:53→08:57)
[2023-08-18] MEDS ORDERED: Levothyroxine 150 MCG TAB PO SCH (06:00)
[2023-08-18 07:22] LABS: #Eosinphils 0.2 thou/uL (0.0-0.7); #Monocytes 0.5 thou/uL (0.11-0.59); #Neutrophils 3.1 thou/uL (1.40-6.50); %Basophils 0.2 % (0.0-1.0); %Eosinophils 3.4 % (0.0-10.0); %Lymphocytes 22.8 % (21.0-51.0); %Monocytes 10.3 % (0.0-10.0); %Neutrophils 63.1 % (42.0-75.0); Hematocrit 35.2 % (36.0-47.0); Hemoglobin 11.4 g/dL (12.0-16.0); Mean Corpuscular HGB CONC 32.4 g/dL (32.0-36.0); Mean Corpuscular Hemoglobin 31.4 pg (27.0-31.0); Mean Platelet Volume 11.5 fL (7.4-10.4); Platelet Count 238 10x3/uL (130-400); RBC Distribution Width 12.8 % (11.5-14.5); Red Blood Cell (RBC) Count 3.63 mill/uL (4.20-5.40)
[2023-08-18 07:48] LABS: ALT (SGPT) 26 U/L (8-55); AST (SGOT) 26 U/L (5-34); Albumin 3.4 g/dL (3.5-5.0); Alkaline Phosphatase 139 U/L (40-110); Anion Gap 10 mmol/L (10-20); BUN (Urea Nitrogen) 10 mg/dL (7.0-18.7); Bilirubin, Total 0.3 mg/dL (0.2-1.2); Calc. Creatinine Clearance 206 mL/min (70-130); Calcium 8.2 mg/dL (7.8-10.44); Carbon Dioxide 23 mmol/L (22-29); Chloride 109 mmol/L (98-107); Estimated GFR 117; Globulin 2.4 g/dL (2.4-3.5); Glucose 91 mg/dL (70-105); Potassium 3.9 mmol/L (3.5-5.1); Protein, Total 5.8 g/dL (6.0-8.3); Sodium 138 mmol/L (136-145)
[2023-08-18] MEDS: Docusate 100 MG CAP PO SCH (08:58)
[2023-08-18] MEDS ORDERED: Aripiprazole 15 MG TAB PO SCH (09:00)
[2023-08-18 10:59] VITALS: BP 98/68; TEMP 98.7
== END 2023-08-18 12:23 | disposition home or self-care (01) ==
LOC: ERS 09:22 → T4-B 15:16
PROVIDERS: ADMIT Family Medicine; ATTEND Family Medicine
DX: G89.18 Other acute postprocedural pain (principal); K43.9 Ventral hernia without obstruction or gangrene; R73.03 Prediabetes; E03.9 Hypothyroidism, unspecified; J45.909 Unspecified asthma, uncomplicated; F41.9 Anxiety disorder, unspecified; F32.A Depression, unspecified; Z79.890 Hormone replacement therapy; Z79.899 Other long term (current) drug therapy; Z88.8 Allergy status to other drugs, medicaments and biological substances
CPT/HCPCS: 36415; 74177; 80053; 81001; 83605; 83690; 84703; 85025; 96361; 96372; 96374; 96376; G0378; J1650; J2270; J2272; Q9967

== ENCOUNTER 2024-02-15 19:33 | Observation (INO) | payer MEDICAID ==
[2024-02-16 00:24] VITALS: BMI 29.7
[2024-02-16 12:18] VITALS: BP 99/57; TEMP 98.1
== END 2024-02-16 13:49 | disposition home or self-care (01) ==
LOC: ERS 19:33 → ERHOLD 22:37
PROVIDERS: ADMIT Family Medicine; ATTEND Family Medicine
DX: R53.1 Weakness (principal); R20.2 Paresthesia of skin; D64.9 Anemia, unspecified; A53.0 Latent syphilis, unspecified as early or late; E87.6 Hypokalemia; E03.9 Hypothyroidism, unspecified; E66.9 Obesity, unspecified; F31.9 Bipolar disorder, unspecified; J45.909 Unspecified asthma, uncomplicated; R00.1 Bradycardia, unspecified; G62.9 Polyneuropathy, unspecified; F41.9 Anxiety disorder, unspecified; Z68.29 Body mass index [BMI] 29.0-29.9, adult; Z98.84 Bariatric surgery status; Z79.890 Hormone replacement therapy; Z88.8 Allergy status to other drugs, medicaments and biological substances; Z90.49 Acquired absence of other specified parts of digestive tract; Z98.890 Other specified postprocedural states; Z79.899 Other long term (current) drug therapy
CPT/HCPCS: 36415; 36416; 70450; 70496; 70498; 70551; 71045; 72141; 80053; 80306; 81001; 83735; 83880; 84436; 84439; 84443; 84484; 84703; 85025; 85610; 85730; 93005; 96374; G0378; Q9967

== ENCOUNTER 2024-07-03 09:38 | Outpatient (CLI) | payer MEDICAID | END 2024-07-03 09:39 | disposition home or self-care (01) | LOC: ULT 09:38 | DX: E03.9 Hypothyroidism, unspecified (principal); R94.6 Abnormal results of thyroid function studies | CPT/HCPCS: 76536 ==

== ENCOUNTER 2025-07-14 08:50 | Outpatient (CLI) | payer OTHER | END 2025-07-14 08:51 | disposition home or self-care (01) | LOC: BICRAD 08:50 | PROVIDERS: ATTEND Student in an Organized Health Care Education/Training Program | DX: M47.816 Spondylosis without myelopathy or radiculopathy, lumbar region (principal); M54.2 Cervicalgia; M54.50 Low back pain, unspecified; M47.812 Spondylosis without myelopathy or radiculopathy, cervical region | CPT/HCPCS: 72040; 72100 ==

== ENCOUNTER 2025-10-03 09:22 | Outpatient (CLI) | payer MEDICAID | END 2025-10-03 09:23 | disposition home or self-care (01) | LOC: BICMRI 09:22 | PROVIDERS: ATTEND Registered Nurse | DX: M51.16 Intervertebral disc disorders with radiculopathy, lumbar region (principal); M47.26 Other spondylosis with radiculopathy, lumbar region; M48.061 Spinal stenosis, lumbar region without neurogenic claudication | CPT/HCPCS: 72148 ==